=== PATIENT | male | born 1960 | race Caucasian/White ===

== ENCOUNTER 2022-02-18 16:05 | Emergency (ER) | payer OTHER ==
[2022-02-18] MEDS ORDERED: Sodium Chloride 0.9% 10 ML Syringe FLUSH PRN (16:33)
[2022-02-18 16:51] LABS: ESTIMATED GFR 62 mL/min (>60)
[2022-02-18] MEDS: Metoprolol Tartrate 50 MG Tab PO ONE (16:56)
[2022-02-18] MEDS: Acetaminophen 500 MG Tab PO ONE (16:57)
[2022-02-18] MEDS: Lisinopril 10 MG Tab PO ONE (17:14)
== END 2022-02-18 18:15 | disposition home or self-care (01) ==
LOC: FB.ED 16:05 → EDSTATUS 16:32 → FB.ED 18:15
DX: I10 Essential (primary) hypertension (principal); Z79.899 Other long term (current) drug therapy
CPT/HCPCS: 71045; 80048; 84484; 93005; 99284; A9270-GY